=== PATIENT | female | born 1975 | race African-American/Black ===

== ENCOUNTER → 2017-04-01 | Outpatient (CLI) | payer BC ==
[~2017-04-01] MED LIST: AMOXICILLIN875 MG PO; BENZONATATE100 MG PO; EFFEXOR XR75 MG PO; FLONASE 0.05%50 MCG NASAL; LAMICTAL 25 MG25 MG PO; MAGIC MOUTHWASH PO; NORCO 5-325 TA1 EACH PO; NORFLEX100 MG PO; PERCOCET 5-3251 EACH PO; PROMETHAZINE-C120 ML PO; SERTRALINE HCL50 MG PO; VANCOCIN 250 M250 M1 PO
== END ==
LOC: RAD 14:46
DX: Z12.31 Encounter for screening mammogram for malignant neoplasm of breast (principal)